=== PATIENT | female | born 1975 | race Two or more races ===

== ENCOUNTER → 2018-10-05 | Outpatient (CLI) | payer OTHER ==
--- NOTE | 2018-10-05 12:19 | Diagnostic Imaging Report ---
RIGHT KNEE - 3 IMAGES HISTORY: Pain, swelling COMPARISON: None available. FINDINGS: Bones: No acute displaced fracture. Mild medial and patellofemoral compartments marginal osteophytosis. Joints: The joint spaces are well-maintained. Soft tissues: The soft tissues appear unremarkable. IMPRESSION: 1. No acute radiographic abnormality. 2. Minimal medial and patellofemoral compartment osteoarthrosis. Signed by: Dr. Jimenez Kinney D.O., M.M.M. on 10/05/2018 12:15 PM
== END ==
LOC: RAD 10:52
PROVIDERS: ATTEND Internal Medicine
DX: M25.561 Pain in right knee (principal); M25.461 Effusion, right knee

== ENCOUNTER → 2018-10-16 | Outpatient (CLI) | payer OTHER ==
--- NOTE | 2018-10-26 08:24 | Diagnostic Imaging Report ---
#[id number] - MGSCRBIL #BILATERAL DIGITAL SCREENING MAMMOGRAM WITH CAD: 10/16/2018 CLINICAL: Routine screening. No prior exams were available for comparison. Current study contains 4 films. The tissue of both breasts is extremely dense, which lowers the sensitivity of mammography. Current study was also evaluated with a Computer Aided Detection (CAD) system. No significant masses, calcifications, or other findings are seen in either breast. IMPRESSION: BENIGN There is no mammographic evidence of malignancy. A 1 year screening mammogram is recommended. The patient will be notified by letter of the results. Leon bobo/aydee:10/25/2018 08:21:21 Breaster: Elisabeth DAIGLE(R)(M), [facility] letter sent: Normal Exam Mammogram BI-RADS: 2 Benign
== END ==
LOC: MAMMO 09:00
PROVIDERS: ATTEND Internal Medicine
DX: Z12.31 Encounter for screening mammogram for malignant neoplasm of breast (principal)
CPT/HCPCS: 77067

== ENCOUNTER → 2019-05-09 | Outpatient (CLI) | payer OTHER ==
--- NOTE | 2019-05-09 12:38 | Diagnostic Imaging Report ---
Exam: Right Knee radiograph, 3 views Right femur radiograph, 4 views History: Trauma Comparison: None Findings: No acute fracture or dislocation in the visualized right femur and knee. Anatomic alignment of right hip joint and right knee joint. No substantial joint effusion. No significant degenerative change. Impression: No acute osseous injury of the right femur or knee. Signed by: Jarek Richmond MD on 05/09/2019 12:35 PM
== END ==
LOC: RAD 11:26
PROVIDERS: ATTEND Internal Medicine
DX: M25.561 Pain in right knee (principal); M79.651 Pain in right thigh; W19.XXXA Unspecified fall, initial encounter

== ENCOUNTER → 2019-08-07 | Outpatient (CLI) | payer OTHER ==
--- NOTE | 2019-08-10 09:15 | Diagnostic Imaging Report ---
#[id number] - MGSCRBIL #BILATERAL DIGITAL SCREENING MAMMOGRAM WITH CAD: 08/07/2019 CLINICAL: Routine screening. Comparison is made to exam dated: 10/16/2018 mammogram - [facility]. Current study contains 4 films. The tissue of both breasts is heterogeneously dense. This may lower the sensitivity of mammography. Current study was also evaluated with a Computer Aided Detection (CAD) system. No significant masses, calcifications, or other findings are seen in either breast. IMPRESSION: NEGATIVE There is no mammographic evidence of malignancy. A 1 year screening mammogram is recommended. The patient will be notified by letter of the results. ANDREZ ROCK M.D. ct/penrad:08/09/2019 09:05:16 [employer] Vehicle Officer: Elisabeth DAIGLE(Jeb)(M), [facility] letter sent: Normal Exam Mammogram BI-RADS: 1 Negative
== END ==
LOC: MAMMO 08:59
PROVIDERS: ATTEND Internal Medicine
DX: Z12.31 Encounter for screening mammogram for malignant neoplasm of breast (principal)
CPT/HCPCS: 77067